=== PATIENT | male | born 1945 | race Caucasian/White ===

== ENCOUNTER 2017-12-31 17:49 | Inpatient (IN) | payer MEDICARE, OTHER ==
--- NOTE | 2017-12-31 18:52 | ED ---
Male Urogenital HPI - General Chief complaint: Urogenital Stated complaint: hematuria Time Seen by Provider: 12/31/17 18:15 Source: patient Mode of arrival: wheelchair Limitations: no limitations - History of Present Illness Initial comments: 72-year-old male patient with an extensive past medical history presents to emergency department today with complaints of hematuria. Patient does perform self-catheterization at home. States he has been having evidence of blood in his urine for the last 3 days. He states that he does take Coumadin for artificial valve as well as history of DVT and his INR level was around 6 this morning when he checked it. Patient denies any traumatic attempts at catheterization. States he has had mild hematuria before but never this prominent. He denies any abdominal pain, vomiting, back pain, or flank pain. He denies any fevers or chills. Patient does take medication chronically for pain. Patient denies any recent rash, shortness breath, chest pain, diarrhea, constipation, numbness, tingling, dizziness, weakness, headache, visual changes , or any other complaints. - Related Data Home Medications Medication Instructions Recorded Confirmed Acyclovir 800 mg PO DAILY PRN 12/31/17 12/31/17 Aspirin EC [Ecotrin Low Dose] 81 mg PO HS 12/31/17 12/31/17 Atorvastatin [Lipitor] 80 mg PO HS 12/31/17 12/31/17 Calcium Carbonate [Tums] 500 mg PO TID PRN 12/31/17 12/31/17 Digest Gold 1 cap PO AC-TID 12/31/17 12/31/17 Docusate [Colace] 100 mg PO DAILY PRN 12/31/17 12/31/17 Furosemide [Lasix] 20 - 40 mg PO DAILY PRN 12/31/17 12/31/17 L.acidoph,Paracasei, B.lactis 1 cap PO DAILY 12/31/17 12/31/17 [Probiotic] Levofloxacin [Levaquin] 750 mg PO DAILY PRN 12/31/17 12/31/17 Lisinopril [Zestril] 5 mg PO DAILY 12/31/17 12/31/17 Metaxalone 800 mg PO Q4H PRN 12/31/17 12/31/17 Mirabegron [Myrbetriq] 25 mg PO DAILY 12/31/17 12/31/17 Morphine Sulfate ER [Ms Contin] 15 mg PO Q8H 12/31/17 12/31/17 Multivitamins, Thera [Multivitamin 1 tab PO DAILY 12/31/17 12/31/17 (formulary)] Polysaccharides Iron 150 mg PO HS 12/31/17 12/31/17 Pregabalin [Lyrica] 100 mg PO TID 12/31/17 12/31/17 Testosterone [Androgel 1% Gel 1 packet TOPICAL Q48H 12/31/17 12/31/17 Packet] Testosterone [Androgel 1% Gel 2 packet TOPICAL Q48H 12/31/17 12/31/17 Packet] Warfarin [Coumadin] 2.5 mg PO Q48H 12/31/17 12/31/17 Warfarin [Coumadin] 5 mg PO Q48H 12/31/17 12/31/17 oxyCODONE HCL 10 mg PO Q4H PRN 12/31/17 12/31/17 Allergies Allergy/AdvReac Type Severity Reaction Status Date / Time Sulfa (Sulfonamide Allergy Unknown Verified 12/31/17 18:32 Antibiotics) Childhood Review of Systems ROS Statement: Those systems with pertinent positive or pertinent negative responses have been documented in the HPI. ROS Other: All systems not noted in ROS Statement are negative. 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, post-radiation bone deteroriation History of Any Multi-Drug Resistant Organisms: None Reported Past Surgical History: Back Surgery, Pacemaker, Tonsillectomy Additional Past Surgical History / Comment(s): powerport (for IVIG infusions,) aortic valve replacement, pemanent vena cava filter, lumpectomy Past Psychological History: No Psychological Hx Reported Smoking Status: Never smoker Past Alcohol Use History: None Reported Past Drug Use History: None Reported General Exam Limitations: no limitations General appearance: alert, in no apparent distress, other (This is a well- developed, thin appearing elderly male patient who is wheelchair-bound. Vital signs upon presentation are temperature 97.9F, pulse 77, respirations 18, blood pressure 119/61, pulse ox 97% on room air.) Eye exam: Present: normal appearance, PERRL, EOMI. Absent: scleral icterus, conjunctival injection, periorbital swelling Respiratory exam: Present: normal lung sounds bilaterally. Absent: respiratory distress, wheezes, rales, rhonchi, stridor Cardiovascular Exam: Present: regular rate, normal rhythm, normal heart sounds. Absent: systolic murmur, diastolic murmur, rubs, gallop, clicks GI/Abdominal exam: Present: soft, normal bowel sounds. Absent: distended, tenderness, guarding, rebound, rigid Back exam: Present: normal inspection. Absent: CVA tenderness (R), CVA tenderness (L) Neurological exam: Present: alert, oriented X3, CN II-XII intact Psychiatric exam: Present: normal affect, normal mood Skin exam: Present: warm, dry, intact, normal color. Absent: rash Course Vital Signs 12/31/17 12/31/17 17:56 23:04 Temperature 97.9 F 98.4 F Pulse Rate 77 80 Respiratory 18 17 Rate Blood Pressure 119/61 152/72 O2 Sat by Pulse 97 96 Oximetry Medical Decision Making - Medical Decision Making 72-year-old male patient presents the emergency department today for evaluation of hematuria. Wound department he did have a bowel movement notice bright red bleeding in his stool, he does report he has a history of hemorrhoids, states that the bleeding stopped shortly after the bowel movement. Labs reviewed and showed a hemoglobin of 10.8. INR 7.2. Urinalysis showed 2+ protein, trace ketones, large blood, moderate leukocyte esterase, greater than 182 red blood cells, many bacteria, this has been sent for culture. Given patient's hypercoagulability and active bleeding we will admit her to the hospital for monitoring of his INR and circulatory status. Patient does have a an artificial valves we will not give vitamin K at this time. We will hold Coumadin. My attending Dr. Giles did speak to Dr. Ritter with [facility] who agrees to admission. - Lab Data Result diagrams: 12/31/17 21:52 12/31/17 21:52 Lab Results 12/31/17 12/31/17 12/31/17 Range/Units 20:43 21:52 21:52 WBC 4.4 (3.8-10.6) k/uL RBC 3.82 L (4.30-5.90) m/uL Hgb 10.8 L (13.0-17.5) gm/dL Hct 33.6 L (39.0-53.0) % MCV 88.1 (80.0-100.0) fL MCH 28.3 (25.0-35.0) pg MCHC 32.1 (31.0-37.0) g/dL RDW 18.4 H (11.5-15.5) % Plt Count 149 L (150-450) k/uL Neutrophils % 77 % Lymphocytes % 9 % Monocytes % 9 % Eosinophils % 2 % Basophils % 1 % Neutrophils # 3.4 (1.3-7.7) k/uL Lymphocytes # 0.4 L (1.0-4.8) k/uL Monocytes # 0.4 (0-1.0) k/uL Eosinophils # 0.1 (0-0.7) k/uL Basophils # 0.0 (0-0.2) k/uL Hypochromasia Slight Anisocytosis Slight PT (9.0-12.0) sec INR (<1.2) APTT (22.0-30.0) sec Sodium 138 (137-145) mmol/L Potassium 3.8 (3.5-5.1) mmol/L Chloride 101 (98-107) mmol/L Carbon Dioxide 31 H (22-30) mmol/L Anion Gap 6 mmol/L BUN 18 (9-20) mg/dL Creatinine 0.50 L (0.66-1.25) mg/dL Est GFR (CKD-EPI)AfAm >90 (>60 ml/min/1.73 sqM) Est GFR (CKD-EPI)NonAf >90 (>60 ml/min/1.73 sqM) Glucose 71 L (74-99) mg/dL Calcium 8.4 (8.4-10.2) mg/dL Total Bilirubin 0.3 (0.2-1.3) mg/dL AST 39 (17-59) U/L ALT 32 (21-72) U/L Alkaline Phosphatase 80 (38-126) U/L Total Protein 5.9 L (6.3-8.2) g/dL Albumin 3.3 L (3.5-5.0) g/dL Urine Color Dark Brown Urine Appearance Turbid (Clear) Urine pH 5.5 (5.0-8.0) Ur Specific [place] 1.018 (1.001-1.035) Urine Protein 2+ H (Negative) Urine Glucose (UA) Negative (Negative) Urine Ketones Trace H (Negative) Urine Blood Large H (Negative) Urine Nitrite Negative (Negative) Urine Bilirubin Negative (Negative) Urine Urobilinogen <2.0 (<2.0) mg/dL Ur Leukocyte Esterase Moderate H (Negative) Urine RBC >182 H (0-5) /hpf Urine Bacteria Many H (None) /hpf 12/31/17 Range/Units 21:52 WBC (3.8-10.6) k/uL RBC (4.30-5.90) m/uL Hgb (13.0-17.5) gm/dL Hct (39.0-53.0) % MCV (80.0-100.0) fL MCH (25.0-35.0) pg MCHC (31.0-37.0) g/dL RDW (11.5-15.5) % Plt Count (150-450) k/uL Neutrophils % % Lymphocytes % % Monocytes % % Eosinophils % % Basophils % % Neutrophils # (1.3-7.7) k/uL Lymphocytes # (1.0-4.8) k/uL Monocytes # (0-1.0) k/uL Eosinophils # (0-0.7) k/uL Basophils # (0-0.2) k/uL Hypochromasia Anisocytosis PT 66.2 H (9.0-12.0) sec INR 7.2 H* (<1.2) APTT 36.2 H (22.0-30.0) sec Sodium (137-145) mmol/L Potassium (3.5-5.1) mmol/L Chloride (98-107) mmol/L Carbon Dioxide (22-30) mmol/L Anion Gap mmol/L BUN (9-20) mg/dL Creatinine (0.66-1.25) mg/dL Est GFR (CKD-EPI)AfAm (>60 ml/min/1.73 sqM) Est GFR (CKD-EPI)NonAf (>60 ml/min/1.73 sqM) Glucose (74-99) mg/dL Calcium (8.4-10.2) mg/dL Total Bilirubin (0.2-1.3) mg/dL AST (17-59) U/L ALT (21-72) U/L Alkaline Phosphatase (38-126) U/L Total Protein (6.3-8.2) g/dL Albumin (3.5-5.0) g/dL Urine Color Urine Appearance (Clear) Urine pH (5.0-8.0) Ur Specific [place] (1.001-1.035) Urine Protein (Negative) Urine Glucose (UA) (Negative) Urine Ketones (Negative) Urine Blood (Negative) Urine Nitrite (Negative) Urine Bilirubin (Negative) Urine Urobilinogen (<2.0) mg/dL Ur Leukocyte Esterase (Negative) Urine RBC (0-5) /hpf Urine Bacteria (None) /hpf Disposition Clinical Impression: Coagulopathy, Hematuria, Rectal bleeding Disposition: ADMITTED IP TO THIS [facility] Condition: Serious Decision to Admit Reason: Admit from EC Decision Date: 12/31/17 Decision Time: 22:49
[2017-12-31 21:29] LABS: Appearance,Urine Turbid (Clear); Bacteria,Urine Many /hpf; Bilirubin,Urine Negative (Negative); Blood,Urine Large (Negative); Color,Urine Dark Brown; Glucose,Urine (UA) Negative (Negative); Ketones,Urine Trace (Negative); Leukocyte Esterase,Urine Moderate (Negative); Nitrite,Urine Negative (Negative); PH, Urine 5.5 (5.0-8.0); Protein,Urine 2+ (Negative); RBC,Urine >182 /hpf (0-5); Urobilinogen,Urine <2.0 mg/dL (<2.0)
[2017-12-31 21:33] LABS: Specific Gravity,Urine 1.018 (1.001-1.035)
[2017-12-31 22:18] LABS: Anisocytosis Slight; Basophils % (A) 1 %; Eosinophils # (A) 0.1 k/uL (0-0.7); Eosinophils % (A) 2 %; HCT 33.6 % (39.0-53.0); HGB 10.8 gm/dL (13.0-17.5); Hypochromasia Slight; Lymphocytes # (A) 0.4 k/uL (1.0-4.8); Lymphocytes % (A) 9 %; MCH 28.3 pg (25.0-35.0); MCHC 32.1 g/dL (31.0-37.0); MCV 88.1 fL (80.0-100.0); Mean Platelet Volume 8.1; Monocytes # (A) 0.4 k/uL (0-1.0); Monocytes % (A) 9 %; Neutrophils # (A) 3.4 k/uL (1.3-7.7); Neutrophils % (A) 77 %; Platelet Count 149 k/uL (150-450); RBC 3.82 m/uL (4.30-5.90); RDW 18.4 % (11.5-15.5); WBC 4.4 k/uL (3.8-10.6)
[2017-12-31 22:26] LABS: ALT 32 U/L (21-72); AST 39 U/L (17-59); Albumin 3.3 g/dL (3.5-5.0); Alkaline Phosphatase 80 U/L (38-126); Anion Gap 6 mmol/L; Blood Urea Nitrogen 18 mg/dL (9-20); Calcium 8.4 mg/dL (8.4-10.2); Carbon Dioxide 31 mmol/L (22-30); Chloride 101 mmol/L (98-107); Glucose 71 mg/dL (74-99); Potassium 3.8 mmol/L (3.5-5.1); Sodium 138 mmol/L (137-145); Total Bilirubin 0.3 mg/dL (0.2-1.3); Total Protein 5.9 g/dL (6.3-8.2)
[2017-12-31 22:31] LABS: Partial Thromboplastin Time 36.2 sec (22.0-30.0); Prothrombin Time 66.2 sec (9.0-12.0)
[2017-12-31 22:35] LABS: INR 7.2 (<1.2)
[2017-12-31] MEDS ORDERED: PHYTONADIONE ORAL 5 MG/5 ML ORAL.SYRG PO STA (22:39)
[2017-12-31] MEDS ORDERED: NALOXONE 0.4 MG/ML 1 ML VIAL IV PRN (22:49)
[2017-12-31] MEDS ORDERED: DOCUSATE 100 MG CAP PO PRN (22:50)
[2017-12-31] MEDS ORDERED: CALCIUM CARBONATE 500 MG CHEWABLE PO PRN (22:50)
[2017-12-31] MEDS ORDERED: TESTOSTERONE 1% TOPICAL SCH (23:00)
[2018-01-01] MEDS: SODIUM CHLORIDE 0.9% 1,000 ML IV SCH ×2 (00:02→21:34)
[2018-01-01] MEDS ORDERED: PHYTONADIONE ORAL 5 MG/5 ML ORAL.SYRG PO STA (06:37)
--- NOTE | 2018-01-01 06:37 | P.HPIM ---
History of Present Illness H&P Date: 01/01/18 Chief Complaint: hematuria 72 y old male with history of DVT and artificial aortic mechanical heart valve on coumadin, he also self cath chronically. He was self cath 4 days ago, when he noticed blood came out, he did not seek medical help as he thought it will stop on its own. it has happened before and stopped on its own. this time , he noticed that the bleeding continues , he describes it as mixed with the urine evertime he self cath , however, the amount has increased and he got concerned when it did not stop after 4 days. he does not feel any pain, denies any fever, chills, denies any chest pain, SOB denies any headaches, vision changes or hearing changes. He also reports off and on rectal bleed due to hemorrhoids where he had bleeding last night however he reports it has stopped now. he gets his coumadini dosed by his doctor gladys, he has been doing it for years Review of Systems Pertinent positives as noted in HPI. 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, post-radiation bone deteroriation History of Any Multi-Drug Resistant Organisms: None Reported Past Surgical History: Back Surgery, Pacemaker, Tonsillectomy Additional Past Surgical History / Comment(s): powerport (for IVIG infusions,) aortic valve replacement, pemanent vena cava filter, lumpectomy Past Psychological History: No Psychological Hx Reported Smoking Status: Never smoker Past Alcohol Use History: None Reported Past Drug Use History: None Reported - Past Family History family Additional Family Medical History / Comment(s): breast cancer in his family, and congestive heart failure Medications and Allergies Home Medications Medication Instructions Recorded Confirmed Type Acyclovir 800 mg PO DAILY PRN 12/31/17 12/31/17 History Aspirin EC [Ecotrin Low Dose] 81 mg PO HS 12/31/17 12/31/17 History Atorvastatin [Lipitor] 80 mg PO HS 12/31/17 12/31/17 History Calcium Carbonate [Tums] 500 mg PO TID PRN 12/31/17 12/31/17 History Digest Gold 1 cap PO AC-TID 12/31/17 12/31/17 History Docusate [Colace] 100 mg PO DAILY PRN 12/31/17 12/31/17 History Furosemide [Lasix] 20 - 40 mg PO DAILY PRN 12/31/17 12/31/17 History L.acidoph,Paracasei, B.lactis 1 cap PO DAILY 12/31/17 12/31/17 History [Probiotic] Levofloxacin [Levaquin] 750 mg PO DAILY PRN 12/31/17 12/31/17 History Lisinopril [Zestril] 5 mg PO DAILY 12/31/17 12/31/17 History Metaxalone 800 mg PO Q4H PRN 12/31/17 12/31/17 History Mirabegron [Myrbetriq] 25 mg PO DAILY 12/31/17 12/31/17 History Morphine Sulfate ER [Ms Contin] 15 mg PO Q8H 12/31/17 12/31/17 History Multivitamins, Thera [Multivitamin 1 tab PO DAILY 12/31/17 12/31/17 History (formulary)] Polysaccharides Iron 150 mg PO HS 12/31/17 12/31/17 History Pregabalin [Lyrica] 100 mg PO TID 12/31/17 12/31/17 History Testosterone [Androgel 1% Gel 1 packet TOPICAL Q48H 12/31/17 12/31/17 History Packet] Testosterone [Androgel 1% Gel 2 packet TOPICAL Q48H 12/31/17 12/31/17 History Packet] Warfarin [Coumadin] 2.5 mg PO Q48H 12/31/17 12/31/17 History Warfarin [Coumadin] 5 mg PO Q48H 12/31/17 12/31/17 History oxyCODONE HCL 10 mg PO Q4H PRN 12/31/17 12/31/17 History Allergies Allergy/AdvReac Type Severity Reaction Status Date / Time Sulfa (Sulfonamide Allergy Unknown Verified 12/31/17 18:32 Antibiotics) Childhood Physical Exam Vitals: Vital Signs Temp Pulse Resp BP Pulse Ox 01/01/18 05:50 98.5 F 77 18 116/56 98 01/01/18 03:28 74 12/31/17 23:04 98.4 F 80 17 152/72 96 12/31/17 17:56 97.9 F 77 18 119/61 97 Intake and Output 12/31/17 12/31/17 01/01/18 14:59 22:59 06:59 Other: Voiding Method Self-Catheterization Weight 59.874 kg Constitutional: No acute distress, conversant, pleasant Eyes: Anicteric sclerae, moist conjunctiva, no lid-lag Pupils equal round reactive to light ENMT: NC/AT Oropharynx clear, no erythema, exudates Neck: Supple, FROM, no masses, or JVD No carotid bruits No thyromegaly Lungs: Clear to auscultation Clear to percussion Normal respiratory effort, no accessory muscle use Cardiovascular: Heart regular in rate and rhythm, No murmurs, gallops, or rubs No peripheral edema Abdominal: Soft Nontender, no guarding, rebound or rigidity Abdomen moving with respiration Normoactive bowel sounds No hepatomegaly, No splenomegaly No palpable mass No abdominal wall hernia noted Skin: Normal temperature, tone, texture, turgor No induration No subcutaneous nodules No rash, lesions No ulcers Extremities: No digital cyanosis No clubbing Pedal pulses intact and symmetrical Radial pulses intact and symmetrical No calf tenderness Psychiatric: Alert and oriented to person, place and time Appropriate affect fair judgment Neuro Muscles Strength 5/5 in all upper extremity , paraplegic in lower extremities Sensation to light touch grossly present throughout however, decreased sensation over lower extremities Cranial nerves II-XII grossly intact No focal sensory deficits Lymphatics: no palpable cervical or supraclavicular , or inguinal lymph nodes Results CBC & Chem 7: 12/31/17 21:52 12/31/17 21:52 Labs: Abnormal Lab Results - Last 24 Hours (Table) 12/31/17 12/31/17 12/31/17 Range/Units 20:43 21:52 21:52 RBC 3.82 L (4.30-5.90) m/uL Hgb 10.8 L (13.0-17.5) gm/dL Hct 33.6 L (39.0-53.0) % RDW 18.4 H (11.5-15.5) % Plt Count 149 L (150-450) k/uL Lymphocytes # 0.4 L (1.0-4.8) k/uL PT (9.0-12.0) sec INR (<1.2) APTT (22.0-30.0) sec Carbon Dioxide 31 H (22-30) mmol/L Creatinine 0.50 L (0.66-1.25) mg/dL Glucose 71 L (74-99) mg/dL Total Protein 5.9 L (6.3-8.2) g/dL Albumin 3.3 L (3.5-5.0) g/dL Urine Protein 2+ H (Negative) Urine Ketones Trace H (Negative) Urine Blood Large H (Negative) Ur Leukocyte Esterase Moderate H (Negative) Urine RBC >182 H (0-5) /hpf Urine Bacteria Many H (None) /hpf 12/31/17 Range/Units 21:52 RBC (4.30-5.90) m/uL Hgb (13.0-17.5) gm/dL Hct (39.0-53.0) % RDW (11.5-15.5) % Plt Count (150-450) k/uL Lymphocytes # (1.0-4.8) k/uL PT 66.2 H (9.0-12.0) sec INR 7.2 H* (<1.2) APTT 36.2 H (22.0-30.0) sec Carbon Dioxide (22-30) mmol/L Creatinine (0.66-1.25) mg/dL Glucose (74-99) mg/dL Total Protein (6.3-8.2) g/dL Albumin (3.5-5.0) g/dL Urine Protein (Negative) Urine Ketones (Negative) Urine Blood (Negative) Ur Leukocyte Esterase (Negative) Urine RBC (0-5) /hpf Urine Bacteria (None) /hpf Microbiology - Last 24 Hours (Table) 12/31/17 20:43 Urine Culture - Preliminary Urine,Voided Assessment and Plan Assessment: 72 year old male with extensive past medical history , admitted as inpatient with anticipated length of stay of more than 2 days, for supratheraputic INR, hematuria, and rectal bleeding. patient on coumadin for artificial aortic valve , and he self cath due to spinal injury. he noticed hematuria that has been worsening over the past 4 days. Plan: hematuria possibly 2/2 trauma from self cath urology consult close monitoring of urine output close monitoring of H and H coumadin toxicity supratheraputic INR patient takes Coumadin for history of venous thromboembolism last one was 2008, s/p IVC filter give vitamin K artificial aortic valve (not mechanical ) hypertension continue home meds chronic systolic CHF, currently compensated DVT ppx, currently with supratheraputic INR Surrogate decision-maker: patient CODE STATUS:no code Discussed with: Patient, ER, RN Anticipated discharge: 48-[address]: home A total of 50 minutes was spent on the care of this complex patient more than 50% of the time was spent in counseling and care coordination.
[2018-01-01 06:50] LABS: Anisocytosis Slight; Basophils % (A) 0 %; Eosinophils # (A) 0.1 k/uL (0-0.7); Eosinophils % (A) 2 %; HCT 32.5 % (39.0-53.0); HGB 10.4 gm/dL (13.0-17.5); Hypochromasia Slight; Lymphocytes # (A) 0.4 k/uL (1.0-4.8); Lymphocytes % (A) 14 %; MCH 27.8 pg (25.0-35.0); MCV 86.6 fL (80.0-100.0); Mean Platelet Volume 8.4; Monocytes # (A) 0.3 k/uL (0-1.0); Monocytes % (A) 12 %; Neutrophils % (A) 70 %; Platelet Count 117 k/uL (150-450); RBC 3.75 m/uL (4.30-5.90); RDW 18.5 % (11.5-15.5); WBC 2.9 k/uL (3.8-10.6)
[2018-01-01] MEDS: LISINOPRIL 5 MG TAB PO SCH (08:10)
[2018-01-01] MEDS: MULTIVITAMINS, THERA 1 EACH TAB PO SCH (08:10)
[2018-01-01] MEDS: LACTOBACILLUS ACIDOPH & BULGAR 1 EACH PACKET PO SCH (08:11)
[2018-01-01] MEDS: IRON POLYSACCHARIDES COMPLEX 150 MG CAP PO SCH ×2 (08:11→22:37)
[2018-01-01] MEDS: CYCLOBENZAPRINE 10 MG TAB PO SCH ×5 (08:12→23:51)
[2018-01-01] MEDS: MORPHINE SULFATE ER 15 MG TABLET PO SCH ×6 (08:24→22:37)
[2018-01-01 09:23] LABS: ALT 37 U/L (21-72); AST 36 U/L (17-59); Alkaline Phosphatase 75 U/L (38-126); Anion Gap 5 mmol/L; Blood Urea Nitrogen 14 mg/dL (9-20); Calcium 8.4 mg/dL (8.4-10.2); Carbon Dioxide 30 mmol/L (22-30); Chloride 103 mmol/L (98-107); Glucose 81 mg/dL (74-99); Potassium 4.2 mmol/L (3.5-5.1); Sodium 138 mmol/L (137-145); Total Bilirubin 0.4 mg/dL (0.2-1.3); Total Protein 5.7 g/dL (6.3-8.2)
[2018-01-01 09:25] LABS: Prothrombin Time 50.6 sec (9.0-12.0)
[2018-01-01 09:29] LABS: Anisocytosis Slight; Basophils % (A) 1 %; Eosinophils # (A) 0.1 k/uL (0-0.7); Eosinophils % (A) 1 %; HCT 33.8 % (39.0-53.0); HGB 10.5 gm/dL (13.0-17.5); Hypochromasia Moderate; Lymphocytes # (A) 0.3 k/uL (1.0-4.8); Lymphocytes % (A) 9 %; MCH 27.6 pg (25.0-35.0); MCHC 30.9 g/dL (31.0-37.0); MCV 89.2 fL (80.0-100.0); Mean Platelet Volume 8.3; Monocytes # (A) 0.4 k/uL (0-1.0); Monocytes % (A) 10 %; Neutrophils # (A) 2.7 k/uL (1.3-7.7); Neutrophils % (A) 76 %; Platelet Count 146 k/uL (150-450); RBC 3.79 m/uL (4.30-5.90); RDW 18.6 % (11.5-15.5); WBC 3.6 k/uL (3.8-10.6)
[2018-01-01 09:32] LABS: INR 5.6 (<1.2)
[2018-01-01] MEDS: PREGABALIN 100 MG CAP PO SCH ×3 (09:35→22:37)
[2018-01-01 13:59] VITALS: BMI 18.9
[2018-01-01 16:41] LABS: Anisocytosis Slight; Basophils % (A) 0 %; Eosinophils # (A) 0.1 k/uL (0-0.7); Eosinophils % (A) 2 %; HCT 34.7 % (39.0-53.0); HGB 10.7 gm/dL (13.0-17.5); Hypochromasia Moderate; Lymphocytes # (A) 0.4 k/uL (1.0-4.8); Lymphocytes % (A) 9 %; MCH 27.6 pg (25.0-35.0); MCHC 30.9 g/dL (31.0-37.0); MCV 89.3 fL (80.0-100.0); Monocytes # (A) 0.4 k/uL (0-1.0); Monocytes % (A) 9 %; Neutrophils # (A) 3.1 k/uL (1.3-7.7); Neutrophils % (A) 78 %; Platelet Count 134 k/uL (150-450); RBC 3.89 m/uL (4.30-5.90); RDW 18.3 % (11.5-15.5)
[2018-01-01] MEDS ORDERED: NON-FORMULARY DRUG (Aspirin Ec 81 MG) PO SCH (21:00)
[2018-01-01] MEDS ORDERED: ATORVASTATIN 80 MG TAB PO SCH (21:00)
[2018-01-01] MEDS ORDERED: TESTOSTERONE 1% TOPICAL SCH (23:00)
[2018-01-01 23:13] LABS: Anisocytosis Slight; Basophils % (A) 1 %; Eosinophils # (A) 0.1 k/uL (0-0.7); Eosinophils % (A) 2 %; HCT 33.6 % (39.0-53.0); HGB 10.3 gm/dL (13.0-17.5); Hypochromasia Slight; Lymphocytes # (A) 0.4 k/uL (1.0-4.8); Lymphocytes % (A) 10 %; MCH 27.2 pg (25.0-35.0); MCHC 30.6 g/dL (31.0-37.0); MCV 88.8 fL (80.0-100.0); Mean Platelet Volume 8.4; Monocytes # (A) 0.3 k/uL (0-1.0); Monocytes % (A) 9 %; Neutrophils # (A) 2.8 k/uL (1.3-7.7); Neutrophils % (A) 76 %; Platelet Count 145 k/uL (150-450); RBC 3.78 m/uL (4.30-5.90); RDW 18.6 % (11.5-15.5); WBC 3.7 k/uL (3.8-10.6)
[2018-01-02 05:23] VITALS: PULSE 85
[2018-01-02] MEDS: MORPHINE SULFATE ER 15 MG TABLET PO SCH (06:09)
[2018-01-02 07:25] LABS: INR 1.4 (<1.2); Prothrombin Time 12.8 sec (9.0-12.0)
[2018-01-02 07:26] LABS: Anion Gap 2 mmol/L; Blood Urea Nitrogen 12 mg/dL (9-20); Calcium 8.5 mg/dL (8.4-10.2); Carbon Dioxide 31 mmol/L (22-30); Chloride 106 mmol/L (98-107); Glucose 84 mg/dL (74-99); Magnesium 1.8 mg/dL (1.6-2.3); Phosphorus 3.3 mg/dL (2.5-4.5); Potassium 3.8 mmol/L (3.5-5.1); Sodium 139 mmol/L (137-145)
[2018-01-02 07:31] LABS: Anisocytosis Slight; Basophils % (A) 1 %; Eosinophils # (A) 0.1 k/uL (0-0.7); Eosinophils % (A) 3 %; HCT 32.1 % (39.0-53.0); Hypochromasia Slight; Lymphocytes # (A) 0.4 k/uL (1.0-4.8); Lymphocytes % (A) 11 %; MCH 27.5 pg (25.0-35.0); MCHC 31.3 g/dL (31.0-37.0); MCV 88.1 fL (80.0-100.0); Mean Platelet Volume 7.5; Monocytes # (A) 0.3 k/uL (0-1.0); Monocytes % (A) 10 %; Neutrophils # (A) 2.5 k/uL (1.3-7.7); Neutrophils % (A) 74 %; Platelet Count 149 k/uL (150-450); RBC 3.64 m/uL (4.30-5.90); RDW 18.6 % (11.5-15.5); WBC 3.4 k/uL (3.8-10.6)
[2018-01-02 08:53] VITALS: BP 100/46; RESP 16; TEMP 98.1
[2018-01-02] MEDS: LACTOBACILLUS ACIDOPH & BULGAR 1 EACH PACKET PO SCH (08:58)
[2018-01-02] MEDS: PREGABALIN 100 MG CAP PO SCH (08:59)
[2018-01-02] MEDS: CYCLOBENZAPRINE 10 MG TAB PO SCH (08:59)
[2018-01-02] MEDS: MULTIVITAMINS, THERA 1 EACH TAB PO SCH (08:59)
[2018-01-02] MEDS: LISINOPRIL 5 MG TAB PO SCH (08:59)
--- NOTE | 2018-01-02 13:04 | P.DS ---
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 He noticed the bleeding mixed with the urine everytime he self cath. Symptoms have been ongoing and worsening over the past 4 days. He is currently visiting [place] from another state. No pain, denied any fever, chills, denied any chest pain, SOB, any headaches, vision changes or hearing changes. Patient also reported on and off rectal bleed due to hemorrhoids. In the emergency department his INR was very elevated at 7.2. Decision was made to admit him to the hospital for observation. He was given some vitamin K. INR was followed throughout his hospitalization and got down to 1.4 on the day of discharge. No further bleeding was reported by the patient. The urine is currently clear. Urinalysis was positive for pyuria and urine culture grew gram-negative rods. Patient will be discharged home in a stable condition on oral antibiotics. Patient needs to follow with his primary care physician for INR checks as soon as possible after discharge. Patient aware. Discharge diagnoses Coumadin toxicity Hematuria likely secondary to above Patient Condition at Discharge: Stable Plan - Discharge Summary Discharge Rx Participant: No New Discharge Prescriptions: New Amoxicillin/Potassium Clav [Augmentin 875-125 Tablet] 1 tab PO Q12HR #20 tab Continue Mirabegron [Myrbetriq] 25 mg PO DAILY Lisinopril [Zestril] 5 mg PO DAILY Multivitamins, Thera [Multivitamin (formulary)] 1 tab PO DAILY Levofloxacin [Levaquin] 750 mg PO DAILY PRN PRN Reason: PNEUMONIA Docusate [Colace] 100 mg PO DAILY PRN PRN Reason: Constipation Atorvastatin [Lipitor] 80 mg PO HS Acyclovir 800 mg PO DAILY PRN PRN Reason: HERPES SIMPLEX Testosterone [Androgel 1% Gel Packet] 2 packet TOPICAL Q48H Testosterone [Androgel 1% Gel Packet] 1 packet TOPICAL Q48H Furosemide [Lasix] 20 - 40 mg PO DAILY PRN PRN Reason: Edema Pregabalin [Lyrica] 100 mg PO TID Morphine Sulfate ER [Ms Contin] 15 mg PO Q8H Calcium Carbonate [Tums] 500 mg PO TID PRN PRN Reason: Heartburn Aspirin EC [Ecotrin Low Dose] 81 mg PO HS L.acidoph,Paracasei, B.lactis [Probiotic] 1 cap PO DAILY oxyCODONE HCL 10 mg PO Q4H PRN PRN Reason: Pain Warfarin [Coumadin] 5 mg PO Q48H Warfarin [Coumadin] 2.5 mg PO Q48H Polysaccharides Iron 150 mg PO HS Metaxalone 800 mg PO Q4H PRN PRN Reason: MUSCLE SPASMS Digest Gold 1 cap PO AC-TID Discharge Medication List Acyclovir 800 mg PO DAILY PRN 12/31/17 [History] Aspirin EC [Ecotrin Low Dose] 81 mg PO HS 12/31/17 [History] Atorvastatin [Lipitor] 80 mg PO HS 12/31/17 [History] Calcium Carbonate [Tums] 500 mg PO TID PRN 12/31/17 [History] Digest Gold 1 cap PO AC-TID 12/31/17 [History] Docusate [Colace] 100 mg PO DAILY PRN 12/31/17 [History] Furosemide [Lasix] 20 - 40 mg PO DAILY PRN 12/31/17 [History] L.acidoph,Paracasei, B.lactis [Probiotic] 1 cap PO DAILY 12/31/17 [History] Levofloxacin [Levaquin] 750 mg PO DAILY PRN 12/31/17 [History] Lisinopril [Zestril] 5 mg PO DAILY 12/31/17 [History] Metaxalone 800 mg PO Q4H PRN 12/31/17 [History] Mirabegron [Myrbetriq] 25 mg PO DAILY 12/31/17 [History] Morphine Sulfate ER [Ms Contin] 15 mg PO Q8H 12/31/17 [History] Multivitamins, Thera [Multivitamin (formulary)] 1 tab PO DAILY 12/31/17 [History ] Polysaccharides Iron 150 mg PO HS 12/31/17 [History] Pregabalin [Lyrica] 100 mg PO TID 12/31/17 [History] Testosterone [Androgel 1% Gel Packet] 1 packet TOPICAL Q48H 12/31/17 [History] Testosterone [Androgel 1% Gel Packet] 2 packet TOPICAL Q48H 12/31/17 [History] Warfarin [Coumadin] 2.5 mg PO Q48H 12/31/17 [History] Warfarin [Coumadin] 5 mg PO Q48H 12/31/17 [History] oxyCODONE HCL 10 mg PO Q4H PRN 12/31/17 [History] Amoxicillin/Potassium Clav [Augmentin 875-125 Tablet] 1 tab PO Q12HR #20 tab [Rx] Follow up Appointment(s)/Referral(s): Nonstaff,Physician [Primary Care Provider] - 1-2 days Patient Instructions/Handouts: Hematuria (GEN), Elevated INR (DC) Activity/Diet/Wound Care/Special Instructions: From [place]-Please make follow up appointment with your PCP in a week Discharge Disposition: HOME SELF-CARE
== END 2018-01-02 11:31 | disposition home or self-care (01) | DRG 918 ==
LOC: EC 17:49 → 6SEL 22:46
PROVIDERS: ADMIT Internal Medicine; ATTEND Internal Medicine
DX: T45.511A Poisoning by anticoagulants, accidental (unintentional), initial encounter (principal); G82.20 Paraplegia, unspecified; I50.22 Chronic systolic (congestive) heart failure; R31.0 Gross hematuria; T14.8XXS Other injury of unspecified body region, sequela; I11.0 Hypertensive heart disease with heart failure; I25.10 Atherosclerotic heart disease of native coronary artery without angina pectoris; I25.2 Old myocardial infarction; K21.9 Gastro-esophageal reflux disease without esophagitis; K64.9 Unspecified hemorrhoids; M19.90 Unspecified osteoarthritis, unspecified site; Z79.01 Long term (current) use of anticoagulants; Z79.82 Long term (current) use of aspirin; Z79.899 Other long term (current) drug therapy; Z88.2 Allergy status to sulfonamides; Z95.2 Presence of prosthetic heart valve; Z86.718 Personal history of other venous thrombosis and embolism; Z86.711 Personal history of pulmonary embolism; Z85.47 Personal history of malignant neoplasm of testis; Z92.3 Personal history of irradiation; Z99.3 Dependence on wheelchair; Z82.49 Family history of ischemic heart disease and other diseases of the circulatory system; Z80.3 Family history of malignant neoplasm of breast; Y92.009 Unspecified place in unspecified non-institutional (private) residence as the place of occurrence of the external cause
CPT/HCPCS: 36415; 51702; 80048; 80053; 81001; 83735; 84100; 85025; 85610; 85730; 87077; 87086; 87186; 99284